=== PATIENT | female | born 1995 | race Caucasian/White ===

== ENCOUNTER 2017-08-24 22:42 | Emergency (ER) | payer OTHER ==
--- NOTE | 2017-08-24 23:27 | ER Document Report ---
ED ENT - General Chief Complaint: Sore Throat Stated Complaint: SORE THROAT,EAR PAIN Time Seen by Provider: 08/24/17 23:27 Mode of Arrival: Ambulatory Information source: Patient Notes: Patient is a 22-year-old female who presents to the ER today for 3 days of sore throat, and bilateral ear pain and fever. Patient has not taken her temperature but states she has had chills and body aches. She admits to some mild runny nose but denies any cough. TRAVEL OUTSIDE OF THE [place] IN LAST 30 DAYS: No - Related Data Allergies/Adverse Reactions: No Known Allergies Allergy (Unverified 08/24/17 22:45) Past Medical History - General Information source: Patient - Social History Smoking Status: Unknown if Ever Smoked Family History: Reviewed & Not Pertinent Patient has suicidal ideation: No Patient has homicidal ideation: No Renal/ Medical History: Denies: Hx Peritoneal Dialysis Review of Systems - Review of Systems Constitutional: See HPI EENT: See HPI Cardiovascular: No symptoms reported Respiratory: No symptoms reported Gastrointestinal: No symptoms reported Genitourinary: No symptoms reported Female Genitourinary: No symptoms reported Musculoskeletal: No symptoms reported Skin: No symptoms reported Hematologic/Lymphatic: No symptoms reported Neurological/Psychological: No symptoms reported Physical Exam - Vital signs Vitals: Temp Pulse Resp BP Pulse Ox 98.4 F 107 H 17 112/76 97 08/24/17 23:05 08/24/17 23:05 08/24/17 23:05 08/24/17 23:05 08/24/17 23:05 - Notes Notes: PHYSICAL EXAMINATION: GENERAL: Mildly ill-appearing, but in no acute distress. HEAD: Atraumatic, normocephalic. EYES: Pupils equal round and reactive to light, extraocular movements intact, sclera anicteric, conjunctiva are normal. ENT: ear canals without erythema or foreign body, TMs pearly marsh with good bony landmarks, nares patent, oropharynx erythematous with mildly enlarged tonsils bilaterally without exudates. Moist mucous membranes. NECK: Normal range of motion, supple without lymphadenopathy LUNGS: CTAB and equal. No wheezes rales or rhonchi. HEART: Regular rate and rhythm without murmurs EXTREMITIES: Normal range of motion, no pitting edema. No cyanosis. NEUROLOGICAL: Cranial nerves grossly intact. Normal sensory/motor exams. PSYCH: Normal mood, normal affect. SKIN: Warm, Dry, normal turgor, no rashes or lesions noted Course - Re-evaluation Re-evalutation: 08/25/17 01:54 Patient positive for strep, will be treated with amoxicillin. Her son is also here for the same symptoms and will be treated for strep as well. - Vital Signs Vital signs: Temp Pulse Resp BP Pulse Ox 99.0 F 97 18 107/71 98 08/25/17 00:31 08/25/17 00:31 08/25/17 00:31 08/25/17 00:31 08/25/17 00:31 Discharge - Discharge Clinical Impression: Strep pharyngitis Condition: Stable Disposition: HOME, SELF-CARE Instructions: Strep Throat ([facility]) Additional Instructions: Return immediately for any new or worsening symptoms. Follow up with primary care provider, call tomorrow to make followup appointment. Prescriptions: Amoxicillin 500 mg PO TID #30 capsule Fluticasone Propionate [Flonase Nasal [place] 50 Mcg/[place] 16 gm] 1 spray NASL Q12 #1 inhaler
[2017-08-25 00:33] VITALS: BP 107/71
== END 2017-08-25 00:31 | disposition home or self-care (01) ==
LOC: ER 22:42
DX: J02.0 Streptococcal pharyngitis (principal); H92.03 Otalgia, bilateral; R50.9 Fever, unspecified; R09.89 Other specified symptoms and signs involving the circulatory and respiratory systems
CPT/HCPCS: 87880; 99282

== ENCOUNTER 2017-12-04 10:24 | Emergency (ER) | payer OTHER ==
[2017-12-04 10:33] VITALS: BP 110/69
[2017-12-04] MEDS ORDERED: CEPHALEXIN 500 MG CAPSULE PO ONE (10:47)
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
== END 2017-12-04 11:00 | disposition home or self-care (01) ==
LOC: ER 10:24
DX: N61.0 Mastitis without abscess (principal); N64.4 Mastodynia; R40.2412 Glasgow coma scale score 13-15, at arrival to emergency department
CPT/HCPCS: 99283

== ENCOUNTER 2019-08-07 04:11 | Emergency (ER) | payer OTHER ==
[2019-08-07 04:26] VITALS: BP 132/70
== END 2019-08-07 07:05 | disposition left against medical advice (07) ==
LOC: ER 04:11
DX: Z53.21 Procedure and treatment not carried out due to patient leaving prior to being seen by health care provider (principal); J02.9 Acute pharyngitis, unspecified